=== PATIENT | female | born 1955 ===

== ENCOUNTER 2024-06-11 12:51 | Emergency (ER) | payer MEDICARE, SELFPAY ==
--- NOTE | ~2024-06-11 | CT_ITS ---
EXAMINATION: CT CHEST WITHOUT CONTRAST CLINICAL INFORMATION: Fever, pneumonia. COMPARISON: None available. TECHNIQUE: Multidetector volumetric CT imaging of the chest was done. Axial MIP volume rendering provided. Sagittal and coronal reformatted images were obtained. DLP [address] examination was performed using dose optimization techniques as appropriate, variously including the following: *Automated exposure control *Adjustment of mA and/or kV according to patient size (this includes techniques or standardized protocols for targeted exams where dose is matched to indication/reason for exam; i.e. extremities or head) *Use of iterative reconstruction technique FINDINGS: [employer]IVER: Well-expanded lungs without acute process. LUNGS: Lungs are well-expanded with groundglass attenuation seen in both upper lobes right and left, lingula and in left lower lobe linear atelectatic changes seen in the lingula and left lung base. No large consolidation, mass or nodule seen. MEDIASTINUM: Heart size is normal. No pericardial effusion seen. Central trachea and the bronchi is widely patent. No abnormal size mediastinal hilar lymph nodes seen. Thyroid lobes are symmetrical and normal. CORONARY ARTERY CALCIFICATION: There is mild coronary artery calcification. PLEURA: There is no pleural effusion. No pleural mass or thickening. AXILLA: No lymphadenopathy. UPPER ABDOMEN: Visualized liver, spleen, pancreas and bilateral adrenal glands are unremarkable. OSSEOUS STRUCTURES: There is no visible rib fracture or bony abnormality. The vertebral heights are normal without any fracture. CT/CT chest wo IV con IMPRESSION: Scattered groundglass attenuation seen in both upper lobes anterior segment, lingula and left lung base. These may represent early inflammatory process though no consolidation seen at this time. No pleural effusion. Mild coronary artery calcifications noted. Fleischner guidelines were followed. Electronically signed by: Dipak Benjamin MD 06/11/2024 02:05 PM [facility]
--- NOTE | ~2024-06-11 | CT_ITS ---
EXAMINATION: CT ABDOMEN AND PELVIS WITHOUT CONTRAST CLINICAL INFORMATION: Diarrhea. Fever. Colitis. COMPARISON: None available. TECHNIQUE: Multidetector volumetric imaging was performed from the superior aspect of the liver through the pubic symphysis. Sagittal and coronal reformatted images were obtained on the technologist's workstation. This CT examination was performed using dose optimization techniques as appropriate, variously including the following: *Automated exposure control *Adjustment of mA and/or kV according to patient size (this includes techniques or standardized protocols for targeted exams where dose is matched to indication/reason for exam; i.e. extremities or head) *Use of iterative reconstruction technique. DLP: 684 mGy centimeter. FINDINGS: Inadequate evaluation of the intra-abdominal organs and vascular structures due to lack of IV contrast. LUNG BASES: Pulmonary patchy groundglass, left lung and to a lesser extent in the periphery of the right lower lung lobe. LIVER, GALLBLADDER, AND BILIARY TREE: Liver measures 17 cm with subtle nodular surface. No pericholecystic fluid collection or gallbladder wall thickening. Questionable intraluminal hyperdensity in the gallbladder. No intrahepatic or extrahepatic biliary ductal dilatation. PANCREAS: No peripancreatic fluid collections. No main pancreatic ductal dilatation. 4 mm hypodensity in the body of the pancreas. SPLEEN: 8 cm. ADRENAL GLANDS: No nodular lesions. KIDNEYS AND URETERS: No hydronephrosis. No nephrolithiasis. 1 cm exophytic hypodensity in the lateral midportion of the left kidney. BLADDER: Fluid-filled. GASTROINTESTINAL TRACT: Sutures/metallic ring at the gastroesophageal junction with a 15 degree angle. Collapsed appearance of the left hemicolon. Gas and fluid-filled mildly prominent small bowel loops. No intestinal obstruction pattern. No pneumatosis intestinalis. No pneumoperitoneum. No ascites. No gross fluid collections, peritoneal cavity. Appendix is normal. ABDOMINAL WALL: Small fat-containing umbilical and infraumbilical hernias. LYMPH NODES: No gross lymphadenopathy. VASCULAR: Calcified plaques throughout the abdominal aorta wall and iliac arteries without aneurysm. Calcified plaques in the origin of the mesenteric arteries and the main renal arteries and the splenic artery. PELVIC VISCERA: Inadequate evaluation. OSSEOUS STRUCTURES: Osteopenia versus osteoporosis. Multilevel thoracolumbar spondylosis. Grade 1 anterolisthesis L4-5 resulting in central spinal canal and bilateral neuroforamina stenosis. Sclerosis and the sacroiliac joints. Bony pelvis is intact. Coxofemoral joints are intact with normal alignment. CT/CT abdomen pelvis wo IV con IMPRESSION: Collapsed appearance of the left hemicolon. Mild enteritis should be considered in the correct clinical settings. Hepatomegaly and questionable hepatocellular disease. Consider acute airspace disease, left lung. Questionable cholelithiasis. Atherosclerosis disease. Small fat-containing umbilical and infraumbilical hernias. Grade 1 anterolisthesis L4-5. Fleischner guidelines were followed. Electronically signed by: Shaun Santana MD 06/11/2024 02:13 PM [facility]
[2024-06-11 12:58] VITALS: BP 168/76
[2024-06-11 13:15] VITALS: BP 133/82; PULSE 84; RESP 20; TEMP 38.2; O2SAT 95; BMI 30.1
[2024-06-11] MEDS: Acetaminophen 325 MG TABLET 650 MG PO (13:22)
--- NOTE | 2024-06-11 13:22 | ED.GENADULT ---
HPI - General Adult General Chief complaint: General Medical Stated complaint: WEAK,N/V/D,POOR PO INTAKE FOR DAYS PER EMS Time Seen by Provider: 06/11/24 18:40 Source: patient and EMS Mode of arrival: EMS Limitations: no limitations History of Present Illness ED Provider: Meenu Kimble NP HPI narrative: Patient is a 69-year-old female who presents to the emergency department for evaluation. She states with the past 2 weeks she has been experiencing generalized fatigue, decreased appetite and mild dizziness when changing positions too quickly but admits that this resolved yesterday and has not had any issues today. She presented to an urgent care yesterday, was advised that her kidney function was abnormal and her potassium was low. Daughter is at bedside she states that she has been giving her half and half solution of water and Pedialyte throughout yesterday and today. She denies fevers, chills, headache, vision changes, chest pain, shortness of breath, numbness or tingling of the extremities, nausea, vomiting, abdominal pain, genitourinary symptoms, diarrhea, constipation. Related Data Previous Rx's ?Medication ?Instructions ?Recorded azithromycin 250 mg tablet See Rx Instructions PO .COMPLEX #6 06/11/24 tabs Allergies Allergy/AdvReac Type Severity Reaction Status Date / Time Penicillins Allergy Rash Verified 06/11/24 13:19 Review of Systems Review of Systems: Yes all other systems are reviewed and are negative PMFSH Past Medical History Attestation statement: The following information was validated with the patient. Source: old records reviewed Social History Social History Smoked in Last 30 Days: No Use of substances other than those prescribed or required for medical reasons: No Advance Directives: No Advance Directives Information Provided: Yes Physical Exam ED Vital Signs: Vital Signs - 24 hr 06/11/24 13:15 06/11/24 18:52 06/11/24 19:29 Temperature 100.7 F H 99.3 F Pulse Rate 84 74 78 Respiratory Rate 20 16 Blood Pressure 133/82 146/76 H 189/87 H Pulse Oximetry 95 100 Oxygen Delivery Method Room Air Room Air 06/11/24 19:29 06/11/24 19:29 06/11/24 20:10 Temperature 99.0 F Pulse Rate 80 83 80 Respiratory Rate 16 Blood Pressure 173/84 H 169/86 H 169/86 H Pulse Oximetry 99 Oxygen Delivery Method Room Air BMI result Body Mass Index 30.1 Appearance: Alert.?Oriented to person, place and time. No acute distress.?Normal affect. Eyes: Pupils equal, round and reactive to light.? ENT: Pharynx normal.?? Neck: Normal inspection.? Neck supple.?? CVS: Heart sounds normal. Normal heart rate and rhythm.? Pulses normal.?? Respiratory: No respiratory distress.? Lung sounds clear to auscultation bilaterally except for rhonchi in the left lower lobe? Abdomen: Soft and non-tender. Normoactive bowel sounds. ? Skin: Skin warm and dry.? Normal skin color.? Normal skin turgor.?? Extremities: No lower extremity edema.? No calf ttp? Neuro: Moves all extremities spontaneously. Sensation intact bilaterally. CN II-XII intact. No focal neuro deficits. Ambulates with normal steady gait. Course Course Course Narrative: RME: 69 yold female presents to the ED for fevers, fatigue, generalized weakness, and night sweats. Urgent care [facility]. Labs, SARs strep, chest CT abdominal CT scan ordered. Patient is febrile but non tachy. Medications Administered Discontinued Medications Generic Name Dose Route Start Last Admin Trade Name Freq PRN Reason Stop Dose Admin Acetaminophen 650 mg 06/11/24 13:20 06/11/24 13:22 Acetaminophen 325 Mg Tablet PO 06/11/24 13:21 650 mg ONCE ONE Administration Medical Decision Making Medical Decision Making [facility] Narrative: Patient is a 69-year-old female past medical history of multiple sclerosis, osteoporosis, hypothyroidism, hypertension, depression presents emergency department for evaluation of generalized fatigue and decreased appetite over the past 2 weeks as per HPI. Received call from urgent Care regarding serum labs yesterday revealing hypokalemia and abnormal kidney function. She arrived to the emergency department low-grade fever 100.7 without tachycardia tachypnea or hypoxia. Reviewed workup obtained prior to my assumption of care CBC is without leukocytosis anemia or thrombocytopenia. No electrolyte derangement potassium of 4, no [facility]. Remarkable LFTs. Lipase within normal range. Group a strep testing is negative. She is found to be COVID-[address] of the chest abdomen and pelvis was obtained, abdomen and pelvis overall without acute pathology, CT of the chest revealing scattered ground-glass attenuation bilateral upper lobes as well as the left lung base likely representing early inflammatory process without definitive consolidation, she has rhonchi in the left lower lobe on auscultation. Given the duration of her illness, have concern for onset of superimposed pneumonia which I discussed with patient and her daughter. Will begin course of antibiotics. She is ambulatory with a steady gait. Outpatient follow-up with primary care doctor. Discussed strict return precautions. Continued use of Pedialyte/water mixture in addition to well-balanced diet, small frequent meals throughout the day. All questions answered. Stable for discharge Differential Diagnosis Differential Diagnoses: The differential diagnosis associated with the presentation includes (See narrative above) Admission/Observation Consideration of admission/observation: Escalation of care including admission/observation considered (See narrative above) Lab Data MDM Lab Attestation statement: I reviewed the patient's lab results. (See narrative above) 06/11/24 13:55 06/11/24 13:55 Labs: Lab Results 06/11/24 06/11/24 Range/Units 13:54 13:55 WBC 7.1 (4.8-10.8) X10*3/uL RBC 4.12 L (4.20-5.50) X10*6/uL Hgb 12.8 (12.0-16.0) g/dl Hct 36.4 L (37.0-47.0) % MCV 88.3 (80.0-98.0) fL MCH 31.1 (27.0-33.0) pg MCHC 35.2 H (31.0-35.0) g/dl RDW 12.9 (11.0-16.0) % Plt Count 351 (160-400) X10*3/uL MPV 9.2 L (9.4-12.3) fL Immature Gran % (Auto) 0.3 (0.0-0.4) % Neut % (Auto) 83.3 H (45-73) % Lymph % (Auto) 6.6 L (20-40) % Lea % (Auto) 8.9 (2-11) % Eos % (Auto) 0.8 (0-4) % Baso % (Auto) 0.1 (0-2) % Lymph # (Auto) 0.5 L (1.2-4.9) X10*3/uL Lea # (Auto) 0.6 (0.1-1.2) X10*3/uL Eos # (Auto) 0.1 (0.0-0.4) X10*3/uL Baso # (Auto) 0.0 (0.0-0.2) X10*3/uL Abs Immat Gran (auto) 0.02 (0.00-0.03) X10*3/uL Absolute Neuts (auto) 5.9 (2.0-8.3) x10*3/uL Absolute Nucleated RBC 0.000 (0.0-0.012) X10*3/uL Nucleated RBC % (auto) 0.0 (0.0-0.2) /100WBC Sodium 137 (135-145) mmol/L Potassium 4.0 (3.3-5.1) mmol/L Chloride 103 (96-108) mmol/L Carbon Dioxide 26 (22-29) mmol/L Anion Gap 12 (12-20) BUN 13 (9-16) mg/dL Creatinine 1.34 (0.5-1.4) mg/dL Estim Creat Clear Calc 38.3 Estimated GFR 39 Random Glucose 86 (60-115) mg/dL Calcium 8.7 (8.4-10.2) mg/dL Total Bilirubin 0.4 (0.0-1.0) mg/dL AST 37 H (5-31) U/L ALT 27 (0-31) U/L Alkaline Phosphatase 71 (39-117) U/L Total Protein 6.8 (6.5-8.0) g/dL Albumin 3.8 (3.5-5.0) g/dL Lipase 29 (8-78) U/L Influenza Type A (PCR) NEGATIVE (Negative) Influenza Type B (PCR) NEGATIVE (Negative) RSV RNA Qual (PCR) NEGATIVE (Negative) SARS-CoV-2 RNA (RT-PCR) POSITIVE A (Negative) S. pyogenes GrpA MELITON Negative (Negative) Radiology Impression Discussion of test interpretation with radiology: I have reviewed the radiologist's reading. Radiologist Impression: CT/CT chest wo IV con IMPRESSION: Scattered groundglass attenuation seen in both upper lobes anterior segment, lingula and left lung base. These may represent early inflammatory process though no consolidation seen at this time. No pleural effusion. Mild coronary artery calcifications noted. Fleischner guidelines were followed. CT/CT abdomen pelvis wo IV con IMPRESSION: Collapsed appearance of the left hemicolon. Mild enteritis should be considered in the correct clinical settings. Hepatomegaly and questionable hepatocellular disease. Consider acute airspace disease, left lung. Questionable cholelithiasis. Atherosclerosis disease. Small fat-containing umbilical and infraumbilical hernias. Grade 1 anterolisthesis L4-5. Independent Historian Clinical information obtained from an independent historian. History obtained from or confirmed by: Other (Daughter) External Record Review External record reviewed: Outpatient record Prescription Management I considered prescription management with: Antibiotic (See narrative above) Chronic Conditions Patient?s care impacted by: Other (See narrative above) Discharge Plan Discharge Clinical Impression: COVID-19 Patient Disposition: Home, Self-Care Instructions: COVID-19 (Coronavirus Disease 2019) (ED) Additional Instructions: As discussed, workup today shows normal potassium as well as normal kidney function. Continue with have not have water and Pedialyte. Well-balanced diet with small frequent meals throughout the day. Change position slowly. You are positive for COVID-19 today. Which is likely the cause for your symptoms. On imaging worse concern for changes in the lungs that may represent COVID-19 infection and possibly early pneumonia, when listening to your lungs there was concern in the left lower lobe, they for your being started on a course of antibiotics. Return with any new or worsening symptoms or concerns, follow-up outpatient with your primary care doctor. Prescriptions: New azithromycin 250 mg tablet See Rx Instructions .ROUTE .COMPLEX Qty: 6 0RF Rx Instructions: For 250 mg dose pack: take 500 mg today (day 1), then 250 mg for 4 days (days 2-5) Referrals: Damian Drake PA [Primary Care Provider] - Interventions: ED Discharge Assessment Last Done: 06/11/24 20:10 Discharge Date/Time: 06/11/24 20:11 Print Language: Latvian
[2024-06-11 14:00] LABS: MANUAL DIFF FLAG NO
[2024-06-11 14:01] LABS: Basophils Percent Auto 0.1 % (0-2); Eosinophils Absolute Auto 0.1 X10*3/uL (0.0-0.4); Eosinophils Percent Auto 0.8 % (0-4); Hematocrit 36.4 % (37.0-47.0); Hemoglobin 12.8 g/dl (12.0-16.0); Imm Gran Abs Auto 0.02 X10*3/uL (0.00-0.03); Imm Gran Pct Auto 0.3 % (0.0-0.4); Lymphocytes Absolute Auto 0.5 X10*3/uL (1.2-4.9); Lymphocytes Percent Auto 6.6 % (20-40); Mean Corpuscular HGB Conc 35.2 g/dl (31.0-35.0); Mean Corpuscular Hemoglobin 31.1 pg (27.0-33.0); Mean Corpuscular Volume 88.3 fL (80.0-98.0); Mean Platelet Volume 9.2 fL (9.4-12.3); Monocytes Absolute Auto 0.6 X10*3/uL (0.1-1.2); Monocytes Percent Auto 8.9 % (2-11); Neutrophils Absolute Auto 5.9 x10*3/uL (2.0-8.3); Neutrophils Percent Auto 83.3 % (45-73); Platelet Count 351 X10*3/uL (160-400); Red Blood Count 4.12 X10*6/uL (4.20-5.50); Red Cell Distribution Width 12.9 % (11.0-16.0); White Blood Count 7.1 X10*3/uL (4.8-10.8)
[2024-06-11 14:11] LABS: IDNOW Serial# 58CA691E; Strep A Nucleic Acid Negative (Negative)
[2024-06-11 14:30] LABS: Alanine Aminotransferase 27 U/L (0-31); Albumin Level 3.8 g/dL (3.5-5.0); Alkaline Phosphatase 71 U/L (39-117); Anion Gap 12 (12-20); Aspartate Amino Transferase 37 U/L (5-31); Bilirubin Total 0.4 mg/dL (0.0-1.0); Blood Urea Nitrogen 13 mg/dL (9-16); Calcium 8.7 mg/dL (8.4-10.2); Carbon Dioxide 26 mmol/L (22-29); Chloride 103 mmol/L (96-108); Creatinine Clr Calc Pharmacy 38.3; Estimated Glomerular Filt Rate 39; Glucose Random 86 mg/dL (60-115); Lipase 29 U/L (8-78); Sodium 137 mmol/L (135-145); Total Protein 6.8 g/dL (6.5-8.0)
[2024-06-11 15:11] LABS: Influenza A PCR NEGATIVE (Negative); Influenza B PCR NEGATIVE (Negative); Resp Syncy Virus RNA Qual PCR NEGATIVE (Negative); SARS COV2 PCR INHOUSE POSITIVE (Negative)
[2024-06-11 18:52] VITALS: BP 146/76; PULSE 74; RESP 16; TEMP 37.4; O2SAT 100
[2024-06-11 19:29] VITALS: BP 169/86; BP 173/84; BP 189/87; PULSE 78; PULSE 80; PULSE 83
[2024-06-11 20:10] VITALS: BP 169/86; PULSE 80; RESP 16; TEMP 37.2; O2SAT 99
== END 2024-06-11 20:11 | disposition home or self-care (01) ==
PROVIDERS: Physician Assistant; Emergency Provider Student in an Organized Health Care Education/Training Program; PCP Physician Assistant Medical
DX: U07.1 COVID-19 (principal); R42 Dizziness and giddiness; R19.7 Diarrhea, unspecified; R50.9 Fever, unspecified
CPT/HCPCS: 0241U; 71250; 74176; 80053; 83690; 85025; 87651; 99284

== ENCOUNTER → 2024-06-11 13:20 | Outpatient (BNV) | payer MEDICARE, SELFPAY | PROVIDERS: PCP Physician Assistant Medical; Visit Provider Radiology Diagnostic Radiology | DX: R91.8 Other nonspecific abnormal finding of lung field (principal); I25.10 Atherosclerotic heart disease of native coronary artery without angina pectoris; K52.9 Noninfective gastroenteritis and colitis, unspecified; K44.9 Diaphragmatic hernia without obstruction or gangrene | CPT/HCPCS: 71250; 74176 ==